=== PATIENT | female | born 1940 | race Caucasian/White ===

== ENCOUNTER → 2018-12-29 | Outpatient (CLI) | payer MEDICARE, OTHER, SELFPAY ==
--- NOTE | 2018-12-29 13:09 | RAD_ITS ---
STUDY: X-RAY - LUMBAR SPINE REASON FOR EXAM: Female, 78 years old. Lower back pain radiating into the left lower extremity. TECHNIQUE: 3 view(s) of the lumbar spine were obtained. COMPARISON: None FINDINGS: Normal lumbar lordosis. There is no substantial scoliosis. There is a normal alignment of the vertebrae. There is multilevel endplate spondylosis of the lumbar vertebrae. There is multi-level degenerative disc disease with multi-level disc space narrowing. This is most marked at L4-5 and L5-S1. There is no evidence of acute fracture or loss of vertebral axial height. There is atherosclerotic calcification of the abdominal aorta without a demonstrated aneurysm. Cholecystectomy clips are seen in the right upper quadrant. RAD/Lumbar Spine 2 or 3 Views IMPRESSION: Degenerative changes of the spine, as detailed above. Electronically Signed: Kong Alan DO at 17:02 EDT Tel [phone], Service support ,
== END | disposition home or self-care (01) ==
LOC: RAD 13:05
PROVIDERS: Referring Provider Anesthesiology Pain Medicine; Visit Provider Anesthesiology Pain Medicine
DX: M54.9 Dorsalgia, unspecified (principal)
CPT/HCPCS: 72100

== ENCOUNTER → 2019-01-10 16:48 | Outpatient (CLI) | payer MEDICARE, OTHER, SELFPAY ==
--- NOTE | 2019-01-10 16:58 | MRI_ITS ---
STUDY: MRI LUMBAR SPINE WITHOUT CONTRAST REASON FOR EXAM: Female, 78 years old. Low back pain radiating to left leg TECHNIQUE: Standardized fat and water weighted pulse sequences were obtained in the sagittal and axial planes. COMPARISON: Lumbar spine films December 29, 2018 FINDINGS: No evidence for acute fracture or other significant bony pathology. There are scattered interosseous lipomatous deposits or hemangiomata. Bilateral renal cysts are noted T12-L1: Normal endplates. Normal disc height, hydration and morphology. Normal bilateral facet joints. Normal central canal and bilateral lateral recesses. Normal bilateral intervertebral neural foramina. Normal lumbar lordosis. There is no substantial scoliosis. Normal conus medullaris that terminates at T12-L1 L1-2: Normal endplates. Normal disc height, hydration and morphology. Normal bilateral facet joints. Normal central canal and bilateral lateral recesses. Normal bilateral intervertebral neural foramina. L2-3: Normal endplates. Normal disc height, hydration and mild annular bulge. Normal bilateral facet joints. Normal central canal and bilateral lateral recesses. Normal bilateral intervertebral neural foramina. L3-4: Narrowed disc space with desiccation of disc and moderate annular bulge. Facet arthropathy and thickening of ligamenta flava greater on the left. Mild narrowing of the central canal.. Mild to moderate right lateral recess stenosis and more severe narrowing on the left. Moderate to severe bilateral neuroforaminal stenosis L4-5: Normal endplates. Normal disc height desiccation and moderate annular bulge.. Bilateral facet arthropathy.. Mild narrowing of the central canal. Moderate bilateral recess stenosis. Moderate right neuroforaminal stenosis and more severe narrowing on the left L5-S1: Grade 1 spondylolisthesis Normal endplates. Normal disc height, desiccation and mild bulging disc osteophyte complex. Bilateral facet arthropathy.. Normal central canal and bilateral lateral recesses. Moderate bilateral neuroforaminal stenosis Normal visualized sacral ala. Normal visualized paraspinous soft tissue structures. No significant change since prior exam given differences in imaging techniques MRI/Spine Lumbar (Routine) IMPRESSION: No evidence for acute fracture or other significant bony pathology. Spinal stenosis at L3-4, L4-5 and L5-S1 secondary to bulging annuli and facet arthropathy Findings as above Electronically Signed: Isacc Stout MD at 22:11 EDT , Service support ,
== END ==
PROVIDERS: Referring Provider Anesthesiology Pain Medicine; Visit Provider Anesthesiology Pain Medicine
DX: M54.9 Dorsalgia, unspecified (principal); M79.605 Pain in left leg
CPT/HCPCS: 72148

== ENCOUNTER → 2019-10-27 12:00 | Outpatient (REF) | payer MEDICARE, OTHER, SELFPAY ==
[2019-10-27 13:08] LABS: Hematocrit 39.6 % (37-47); Hemoglobin 12.3 g/dL (12.0-15.0); Mean Corp Hgb Conc 31.1 g/dL (32-36); Mean Corpuscular Hgb 30.6 pg (27.0-32.0); Mean Corpuscular Volume 98.5 fL (81-99); Mean Platelet Vol. 9.9 fl (6.2-12.0); Platelet Count 239 K/mm3 (150-450); RBC Distribution Width CV 13.3 % (11.6-14.6); RBC Distribution Width SD 48.8 fl (35.1-43.9); Red Blood Count 4.02 M/mm3 (4.2-5.4); White Blood Count 4.7 K/mm3 (4.4-11.0)
[2019-10-27 13:25] LABS: Vitamin D,25 Hydroxy 43.6 ng/mL
[2019-10-27 13:34] LABS: ALB/GLOB Ratio 1.2 RATIO (0.9-2.4); AST(SGOT) 25 U/L (15-37); Alanine Aminotransfer ALT/SGPT 25 U/L (13-56); Alkaline Phosphatase 60 U/L (45-117); Anion Gap 3 (5-15); BUN 19 mg/dL (7-18); BUN/Creat Ratio 21.9 RATIO (10-20); Calcium,Total 9.8 mg/dL (8.5-10.1); Chloride 107 mmol/L (98-107); Creatinine, Serum 0.87 mg/dL (0.55-1.02); EST Glomerular Filtration Rate 67 mL/min (>60); Est Glom Filt Rate - Afr Amer 81 mL/min (>60); Globulin 3.4 g/dL (2.2-4.2); Glucose 87 mg/dL (74-106); Potassium 4.6 mmol/L (3.5-5.1); Protein, Total 7.4 g/dL (6.4-8.2); Sodium Level 142 mmol/L (136-145); Thyroid Stim Hormone (TSH) 3.96 uIU/mL (0.358-3.74)
== END ==
LOC: OLS.BROOKB 12:00
DX: F03.90 Unspecified dementia, unspecified severity, without behavioral disturbance, psychotic disturbance, mood disturbance, and anxiety (principal); F32.9 Major depressive disorder, single episode, unspecified; R41.0 Disorientation, unspecified; E55.9 Vitamin D deficiency, unspecified
CPT/HCPCS: 80053; 82306; 84443; 85027

== ENCOUNTER → 2019-10-29 08:00 | Outpatient (REF) | payer MEDICARE, OTHER, SELFPAY ==
[2019-10-31 06:54] LABS: Bacteria 0 SEEN /hpf (None Seen); Mucous, Urine 0 SEEN /hpf (<or=2+); Red Blood Cells-Urine 0 SEEN /hpf (0-5); Squamous Epithelial Cells - UA 0 SEEN /hpf (5-10); White Blood Cells 0 SEEN /hpf (0-5)
[2019-10-31 07:21] LABS: Color, Urine Straw (Yellow); Glucose, Dipstick Normal (Normal); Ketone-Dipstick Negative (Negative); Leukocyte Esterase-Dipstick Negative /ul (Negative); Nitrite-Dipstick Negative (Negative); Occult Blood-Urine Negative /ul (Negative); Protein-Dipstick Negative (Negative); Urine Bilirubin Dipstick Negative (Negative); Urine Clarity Clear (Clear); Urine Urobilinogen Normal (Normal)
== END ==
LOC: OLS.BROOKB 08:00
DX: N39.0 Urinary tract infection, site not specified (principal)
CPT/HCPCS: 81001; 87086; 87088

== ENCOUNTER → 2019-11-08 07:00 | Outpatient (REF) | payer MEDICARE, OTHER, SELFPAY ==
[2019-11-08 10:43] LABS: Bacteria 0 SEEN /hpf (None Seen); Mucous, Urine 0 SEEN /hpf (<or=2+); Red Blood Cells-Urine 0 SEEN /hpf (0-5); White Blood Cells 0 SEEN /hpf (0-5)
[2019-11-08 10:55] LABS: Color, Urine Yellow (Yellow); Glucose, Dipstick Normal (Normal); Ketone-Dipstick Negative (Negative); Leukocyte Esterase-Dipstick Negative /ul (Negative); Nitrite-Dipstick Negative (Negative); Occult Blood-Urine Negative /ul (Negative); Protein-Dipstick Negative (Negative); Specific Gravity, Urine 1.015 (1.002-1.030); Urine Bilirubin Dipstick Negative (Negative); Urine Clarity Sl. Cloudy (Clear); Urine Urobilinogen Normal (Normal); Urine pH 6.5 (5.0 - 8.0)
[2019-11-08 11:04] LABS: Squamous Epithelial Cells - UA 0-5 SEEN /hpf (5-10)
== END ==
LOC: OLS.BROOKB 07:00
DX: N39.0 Urinary tract infection, site not specified (principal)
CPT/HCPCS: 81001; 87086; 87088

== ENCOUNTER → 2020-03-19 04:00 | Outpatient (REF) | payer MEDICARE, OTHER, SELFPAY ==
[2020-03-19 08:09] LABS: BNP,B-Type NATRIURETIC PEPTIDE 52.9 pg/mL (0-100)
[2020-03-19 08:10] LABS: ALB/GLOB Ratio 1.2 RATIO (0.9-2.4); AST(SGOT) 31 U/L (15-37); Alanine Aminotransfer ALT/SGPT 38 U/L (13-56); Albumin, Serum 3.7 g/dL (3.2-5.0); Alkaline Phosphatase 70 U/L (45-117); Anion Gap 4 (5-15); BUN 19 mg/dL (7-18); BUN/Creat Ratio 22.1 RATIO (10-20); Calcium,Total 8.8 mg/dL (8.5-10.1); Chloride 105 mmol/L (98-107); Creatinine, Serum 0.86 mg/dL (0.55-1.02); EST Glomerular Filtration Rate 68 mL/min (>60); Est Glom Filt Rate - Afr Amer 82 mL/min (>60); Globulin 3.2 g/dL (2.2-4.2); Glucose 78 mg/dL (74-106); Potassium 3.8 mmol/L (3.5-5.1); Protein, Total 6.9 g/dL (6.4-8.2); Sodium Level 140 mmol/L (136-145); Thyroid Stim Hormone (TSH) 4.18 uIU/mL (0.358-3.74)
[2020-03-19 10:58] LABS: Mucous, Urine 0 SEEN /hpf (<or=2+); Red Blood Cells-Urine 0 SEEN /hpf (0-5)
[2020-03-19 11:31] LABS: Color, Urine Amber (Yellow); Glucose, Dipstick Normal (Normal); Ketone-Dipstick 5 mg/dl (Negative); Leukocyte Esterase-Dipstick 100 /ul (Negative); Nitrite-Dipstick Negative (Negative); Occult Blood-Urine 25 /ul (Negative); Protein-Dipstick 15 mg/dl (Negative); Urine Bilirubin Dipstick Negative (Negative); Urine Clarity Turbid (Clear); Urine Urobilinogen Normal (Normal)
[2020-03-19 11:48] LABS: White Blood Cells 0-5 SEEN /hpf (0-5)
[2020-03-19 11:49] LABS: Amorphous Sediment 3+; Bacteria 3+ /hpf (None Seen); Calcium Oxalate Crystals Ur 2+ /hpf (<or=2+); Squamous Epithelial Cells - UA 0-5 SEEN /hpf (5-10)
== END ==
LOC: OLS.BROOKB 04:00
DX: N39.0 Urinary tract infection, site not specified (principal); F03.90 Unspecified dementia, unspecified severity, without behavioral disturbance, psychotic disturbance, mood disturbance, and anxiety; M79.89 Other specified soft tissue disorders; Z79.899 Other long term (current) drug therapy; W19.XXXA Unspecified fall, initial encounter
CPT/HCPCS: 36415; 80053; 81001; 83880; 84443; 87086; 87088

== ENCOUNTER 2020-10-15 04:44 | Emergency (ER) | payer MEDICARE, OTHER, SELFPAY ==
[2020-10-15 04:45] VITALS: BP 130/82; PULSE 67; RESP 17; TEMP 36.6; O2SAT 100; BMI 30.3
--- NOTE | 2020-10-15 05:07 | CT_ITS ---
HISTORY: fall TECHNIQUE: Helically acquired images were obtained of the cervical spine without contrast. 2D reformatted images were reviewed. A radiation dose optimization technique was used for this scan. COMPARISON: None FINDINGS: # of images incl. paperwork: 380 Vertebral body height is fairly well-preserved. Some degenerative disc disease is present. This is perhaps most severe at the C6 level both at C5-C6 and C6-C7. Enthesophytes are present anteriorly. Facets are well aligned with arthropathy. Prevertebral and paraspinal soft tissues are normal. No bones are fractured. Visualized portions of the mastoid air cells are free of disease. CT/Spine Cervical without Contras IMPRESSION: Multilevel degenerative disc disease without acute fracture or traumatic subluxation. Individualized dose optimization techniques were used for this CT. at 0611 Reported and signed by: Zeferino Alonso MD Electronically Signed: Zeferino Alonso MD at 6:09 EDT Tel , Service support ,
--- NOTE | 2020-10-15 05:07 | CT_ITS ---
HISTORY: fall Technique:CT Head or Brain W/O Contrast Injection. Sagittal and coronal 2-D reformats Number of Images including paperwork:247 Comparison: None available. Findings: Periventricular deep and subcortical white matter disease is present. Left frontal scalp contusion. Hyperostosis frontalis. Paranasal sinuses are clear. The brain is atrophic. Calcific ASCVD involves intracranial arteries. No acute intracranial edema or hemorrhage. No acute abnormality of orbits. Middle ear cavities and mastoid air cells are well aerated. Skull is normal. CT/Brain/Head without Contrast IMPRESSION: No acute intracranial abnormality. Chronic changes as above. ASPECT 10. Individualized dose optimization techniques were used for this CT. at 0608 Reported and signed by: Zeferino Alonso MD Electronically Signed: Zeferino Alonso MD at 6:07 EDT Tel , Service support ,
--- NOTE | 2020-10-15 05:07 | RAD_ITS ---
HISTORY: injury - attn: 5th finger Technique: Right hand AP, lateral, and oblique radiographs Comparison: None available Findings: An osteophyte is chronic on the ulnar, medial aspect of the second distal interphalangeal joint The fifth digit is dislocated at the proximal interphalangeal joint. The middle phalanx is dislocated anteriorly. There is likely a dorsal avulsion fracture from the articular surface of the proximal end of the fifth middle phalanx Osseous mineralization, joint spaces, and alignment otherwise appear preserved as imaged. No focal abnormality or radiopaque foreign body is seen in the surrounding soft tissues. RAD/Hand Min 3 Views IMPRESSION: Volar dislocation at the fifth proximal interphalangeal joint with an avulsion fracture from the dorsal aspect of the proximal end of the fifth middle phalanx at 0544 Reported and signed by: Zeferino Alonso MD Electronically Signed: Zeferino Alonso MD at 5:43 EDT Tel , Service support ,
[2020-10-15] MEDS: Lidocaine 1% (20 ml mdv) 20 ML Vial INFILT (06:00)
--- NOTE | 2020-10-15 07:12 | RAD_ITS ---
STUDY: X-RAY - RIGHT HAND, ATTENTION FIFTH FINGER REASON FOR EXAM: Status post reduction of fifth proximal interphalangeal dislocation. TECHNIQUE: 2 view(s) of the finger were obtained. COMPARISON: Radiographs obtained earlier today. FINDINGS: Normal metacarpal. Normal metacarpophalangeal joint. Normal proximal phalanx. There is a suspected small avulsion fracture fragment at the base of the middle phalanx. Normal distal phalanx. There is reduction of the proximal interphalangeal joint dislocation. Normal distal interphalangeal joint. RAD/Finger(s) Min 2 Views IMPRESSION: Reduction of the fifth proximal interphalangeal joint dislocation with suspected small avulsion fracture fragment at the base of the middle phalanx. Electronically Signed: Zachery Ward MD at 8:16 EDT Tel , Service support ,
--- NOTE | 2020-10-15 07:35 | EDS_ITS ---
HPI History of Present Illness Chief Complaint: Fall Informant: patient and EMS Occured/Mechanism Mechanism/Context: Yes fall Onset/Context/Timing Onset: Today Current Severity: Mild Maximum Severity: Mild Narrative Narrative: Patient presents via EMS after a fall. She does have a history of A lzheimer's. Per medics patient was trying to sit on the edge of her bed and fell striking the back of her head and injuring her right fifth finger. Patient does not remember what happened. She is not on anticoagulants. There was no loss of consciousness reported. [facility] Medical History Dementia Depression Hypothyroid Home Medications buspirone 5 mg PO DAILY PRN PRN 10/15/20 [History Last Taken Unknown] cephalexin 500 mg PO Q6 #40 cap 10/15/20 [Rx Last Taken Unknown] furosemide [Lasix] 20 mg PO DAILY 10/15/20 [History Last Taken Unknown] gabapentin 100 mg PO TID 10/15/20 [History Last Taken Unknown] levothyroxine 50 mcg PO DAILY 10/15/20 [History Last Taken Unknown] melatonin 5 mg PO DAILY 10/15/20 [History Last Taken Unknown] Allergy/AdvReac Type Severity Reaction Status Date / Time No Known Allergies Allergy Verified 10/15/20 04:50 Social History Smoking Status: Never smoker ROS ROS ED Constitutional Constitutional ED: Denies chills or fever(s) Eyes Eyes: Denies change in vision ENT ENT ED: Denies sore throat Cardiovascular Cardiovascular: Denies chest pain Respiratory/Chest Respiratory/Chest: Denies cough or dyspnea Gastrointestinal Gastrointestinal: Denies abdominal pain, diarrhea, nausea or vomiting Genitourinary Genitourinary ED: Denies dysuria Musculoskeletal Musculoskeletal: Reports neck pain and other Details: Right fifth finger pain ; Denies back pain Integumentary Denies rash Neurologic Neurologic: Reports headache(s); Denies weakness Psychiatric Psychiatric: Denies anxiety or depression Endocrine Endocrinology: Denies polydipsia or polyuria Allergic/Immunologic Allergic/Immunologic ED: Denies urticaria EXAM Physical Exam Const Vital Signs: 10/15/20 04:45 10/15/20 04:50 Temperature 97.9 F Temperature Source Temporal Pulse Rate 67 Respiratory Rate 17 Respiratory Effort Normal Blood Pressure 130/82 H Blood Pressure Mean 98 Pulse Ox 100 Oxygen Delivery Method Room Air Positive well nourished and well developed General Appearance ED: well developed HEENT normocephalic and atraumatic Eyes PERRL and EOMs intact bilaterally Neck supple Neck Narrative: No C-spine tenderness. Chest Wall inspection of chest normal and palpation of chest normal Resp normal respiratory effort and clear to auscultation bilaterally Cardio regular rate and regular rhythm GI non-tender Auscultation: normoactive bowel sounds Palpation: soft Extremity Extremity Narrative: 2 cm laceration over the palmar aspect of the right fifth finger across the PIP joint. Open dislocation of the PIP joint is noted. Neuro Sensorium / Orientation: alert MDM MDM MDM Narrative Medical decision making narrative: Patient is sent for CT scans of the head and C-spine. Right hand x-rays are obtained. Radiography Diagnostic Testing: Radiology Impression Brain CT 10/15/20 05:07 IMPRESSION: No acute intracranial abnormality. Chronic changes as above. ASPECT 10. Individualized dose optimization techniques were used for this CT. at 0608 Reported and signed by: Zeferino Alonso MD Electronically Signed: Zeferino Alonso MD at 6:07 EDT Tel , Service support , Cervical Spine CT 10/15/20 05:07 IMPRESSION: Multilevel degenerative disc disease without acute fracture or traumatic subluxation. Individualized dose optimization techniques were used for this CT. at 0611 Reported and signed by: Zeferino Alonso MD Electronically Signed: Zeferino Alonso MD at 6:09 EDT Tel , Service support , Hand X-Ray 10/15/20 05:07 IMPRESSION: Volar dislocation at the fifth proximal interphalangeal joint with an avulsion fracture from the dorsal aspect of the proximal end of the fifth middle phalanx at 0544 Reported and signed by: Zeferino Alonso MD Electronically Signed: Zeferino Alonso MD at 5:43 EDT Tel , Service support , Treatment and Re-Evaluation Comments:: Right hand x-ray per my interpretation reveals dislocation at the PIP joint. Radiologist interpretation is reviewed. Digital block of the right fifth digit is performed with 3 cc of 1% lidocaine. Wound is excessively irrigated. Dislocation is reduced with traction and wound is again irrigated. Skin is closed with 6 simple entered sutures of 5-0 nylon. Following reduction patient is able to flex and extend her digit. She was placed in a splint and will follow up. If no sign of infection is noted and wound is healing well she will follow-up with local orthopedics. They advised if there is any sign of infection she should follow-up with a hand specialist such as [facility]. Procedures Lacerations Right fifth finger laceration: Length: 0.79 in Depth: Sub Q Shape: Linear Prep: Sterile Conditions and Shure-Clens Laceration repair: Digital block, Irrigated and Lidocaine (3 cc 1% lidocaine) Number of Sutures/Ezekiel: 6 Suture Information: Ethilon, Simple and 5-0 Discharge Plan Triage Chief Complaint: Fall ED Provider: Sydney Flaherty Dx/Rx/DC Orders Clinical Impression: Fall, Closed head injury, Dislocation of finger, interphalangeal joint, right, open Instructions: ED Finger Dislocation, ED Head Injury (Adult), ED Laceration, Hand: All Closures Prescriptions: New cephalexin 500 mg capsule 500 mg PO Q6 Qty: 40 RF: 0 No Action buspirone 5 mg Tablet 5 mg PO DAILY PRN PRN (Reason: Anxiety) RF: 0 furosemide [Lasix] 20 mg Tablet 20 mg PO DAILY RF: 0 gabapentin 100 mg Capsule 100 mg PO TID RF: 0 melatonin 5 mg Tablet 5 mg PO DAILY RF: 0 levothyroxine 50 mcg Capsule 50 mcg PO DAILY RF: 0 Primary Care Provider: Narcisa Herbert Referrals: Austin Alexander MD [NON-STAFF] - As Needed Narcisa Herbert, [Primary Care Provider] - Kurt Blood MD [STAFF PHYSICIAN] - 7 Days for suture removal Disposition Disposition: Home, self care
[2020-10-15 08:01] VITALS: PULSE 88; RESP 18; O2SAT 97
--- NOTE | 2020-10-15 08:09 | ED.RN ---
THIS RN GAVE REPORT TO NURSE NICHOLAS AT [facility] FOR REPORT. CRISTOPHER VERBALIZES UNDERSTANDING OF D/C INSTRUCTIONS. PT TO BE D/C BACK TO [facility].
== END 2020-10-15 08:39 | disposition home or self-care (01) ==
PROVIDERS: Emergency Provider Emergency Medicine
DX: S09.90XA Unspecified injury of head, initial encounter (principal); S63.276A Dislocation of unspecified interphalangeal joint of right little finger, initial encounter; E03.9 Hypothyroidism, unspecified; F32.9 Major depressive disorder, single episode, unspecified; G30.9 Alzheimer's disease, unspecified; F02.80 Dementia in other diseases classified elsewhere, unspecified severity, without behavioral disturbance, psychotic disturbance, mood disturbance, and anxiety; Z79.899 Other long term (current) drug therapy; W19.XXXA Unspecified fall, initial encounter
CPT/HCPCS: 12001; 70450; 72125; 73130; 73140; 99285

== ENCOUNTER → 2021-02-06 05:00 | Outpatient (REF) | payer MEDICARE, OTHER, SELFPAY ==
[2021-02-06 10:10] LABS: Anion Gap 4 (5-15); BUN 29 mg/dL (7-18); Calcium,Total 9.4 mg/dL (8.5-10.1); Chloride 106 mmol/L (98-107); Creatinine, Serum 1.16 mg/dL (0.55-1.02); EST Glomerular Filtration Rate 48 mL/min (>60); Est Glom Filt Rate - Afr Amer 58 mL/min (>60); Glucose 90 mg/dL (74-106); Potassium 4.3 mmol/L (3.5-5.1); Sodium Level 142 mmol/L (136-145); Thyroid Stim Hormone (TSH) 4.72 uIU/mL (0.358-3.74)
== END ==
LOC: OLS.BROOKB 05:00
PROVIDERS: Visit Provider Family Medicine
DX: E03.9 Hypothyroidism, unspecified (principal); R60.9 Edema, unspecified
CPT/HCPCS: 36415; 80048; 84436; 84443

== ENCOUNTER → 2021-02-19 05:00 | Outpatient (REF) | payer MEDICARE, OTHER, SELFPAY ==
[2021-02-19 08:31] LABS: Anion Gap 6 (5-15); BUN 22 mg/dL (7-18); BUN/Creat Ratio 23.9 RATIO (10-20); Calcium,Total 9.2 mg/dL (8.5-10.1); Chloride 103 mmol/L (98-107); Creatinine, Serum 0.92 mg/dL (0.55-1.02); EST Glomerular Filtration Rate 62 mL/min (>60); Est Glom Filt Rate - Afr Amer 75 mL/min (>60); Glucose 82 mg/dL (74-106); Potassium 4.2 mmol/L (3.5-5.1); Sodium Level 140 mmol/L (136-145); T4 Total, Thyroxin 7.9 ug/dL (4.8-13.9); Thyroid Stim Hormone (TSH) 5.95 uIU/mL (0.358-3.74)
== END ==
LOC: OLS.BROOKB 05:00
PROVIDERS: Visit Provider Family Medicine
DX: R60.9 Edema, unspecified (principal); E03.9 Hypothyroidism, unspecified
CPT/HCPCS: 36415; 80048; 84436; 84443

== ENCOUNTER → 2021-04-17 04:00 | Outpatient (REF) | payer MEDICARE, OTHER, SELFPAY ==
[2021-04-17 08:53] LABS: Thyroid Stim Hormone (TSH) 3.48 uIU/mL (0.358-3.74)
== END ==
LOC: OLS.BROOKB 04:00
PROVIDERS: Visit Provider Family Medicine
DX: E03.9 Hypothyroidism, unspecified (principal)
CPT/HCPCS: 36415; 84443

== ENCOUNTER → 2021-05-20 | Outpatient (REF) | payer MEDICARE, OTHER, SELFPAY ==
[2021-05-20 11:23] LABS: Thyroid Stim Hormone (TSH) 1.97 uIU/mL (0.358-3.74)
== END | disposition home or self-care (01) ==
LOC: OLS.BROOKB 05:00
PROVIDERS: Visit Provider Family Medicine
DX: E03.9 Hypothyroidism, unspecified (principal); Z79.899 Other long term (current) drug therapy
CPT/HCPCS: 36415; 84443

== ENCOUNTER → 2021-11-18 10:30 | Outpatient (REF) | payer MEDICARE, OTHER, SELFPAY ==
[2021-11-19 11:52] LABS: Color, Urine Yellow (Yellow); Glucose, Dipstick Normal (Normal); Ketone-Dipstick Negative (Negative); Leukocyte Esterase-Dipstick 500 /ul (Negative); Nitrite-Dipstick Positive (Negative); Occult Blood-Urine 50 /ul (Negative); Protein-Dipstick 30 mg/dl (Negative); Specific Gravity, Urine 1.015 (1.002-1.030); Urine Bilirubin Dipstick Negative (Negative); Urine Clarity Cloudy (Clear); Urine Urobilinogen Normal (Normal)
== END ==
LOC: OLS.BROOKB 10:30
DX: R41.82 Altered mental status, unspecified (principal)
CPT/HCPCS: 81002; 87086; 87088; 87186